=== PATIENT | female | born 1995 | race Caucasian/White ===

== ENCOUNTER 2021-03-12 03:39 | Emergency (ER) | payer OTHER ==
[2021-03-12 04:21] LABS: BASOPHIL 0.5 % (0-2); EOSINOPHIL 1.2 % (0-5); HCT 40.4 % (37.0-47.0); HGB 13.3 g/dl (12.5-16.0); LYMPHOCYTE 35.8 % (15-48); MCH 25.9 pg (25.0-31.0); MCHC 32.9 g/dL (32.0-36.0); MCV 78.6 fL (78.0-100.0); MONOCYTE 7.4 % (0-12); MPV 10.6 fL (6.0-9.5); NRBC 0; PLT 259 K/uL (150-400); RBC 5.14 M/uL (4.20-5.40); RDW 14.6 % (11.5-14.0); WBC 8.7 K/uL (4.0-10.5)
[2021-03-12 04:23] LABS: BILIRUBIN NEGATIVE (NEGATIVE); BLOOD NEGATIVE Ery/uL (NEGATIVE); CLARITY CLEAR (CLEAR); COLOR YELLOW (YELLOW); GLUCOSE (U) NORMAL (NORMAL); LEUKOCYTES NEGATIVE Leu/uL (NEGATIVE); NITRITE NEGATIVE (NEGATIVE); PROTEIN NEGATIVE (NEGATIVE); SPECIFIC GRAVITY >=1.030 (1.001-1.030)
[2021-03-12 04:35] LABS: ALBUMIN 4.1 g/dL (3.4-5.0); BILIRUBIN - TOTAL 0.2 mg/dL (0.2-1.0); BUN/CREAT RATIO (CALC) 11.5 RATIO; CREATININE 0.87 mg/dL (0.51-0.95); GLOBULIN (CALCULATION) 4.7 g/dL; POTASSIUM 3.5 mmol/L (3.5-5.1); TOTAL PROTEIN 8.8 g/dL (6.4-8.2)
== END 2021-03-12 05:15 | disposition home or self-care (01) ==
LOC: FER 03:39
PROVIDERS: Emergency Medicine
DX: G89.29 Other chronic pain (principal); R10.9 Unspecified abdominal pain; F17.200 Nicotine dependence, unspecified, uncomplicated
CPT/HCPCS: 36415; 80053; 81003; 85025; 99284; J7030

== ENCOUNTER 2021-12-27 02:34 | Emergency (ER) | payer OTHER ==
[2021-12-27 03:30] LABS: BASOPHIL 0.5 % (0-2); EOSINOPHIL 0.6 % (0-5); HCT 43.5 % (37.0-47.0); HGB 14.6 g/dl (12.5-16.0); MCHC 33.6 g/dL (32.0-36.0); MCV 83.3 fL (78.0-100.0); MONOCYTE 7.1 % (0-12); MPV 9.7 fL (6.0-9.5); NEUTROPHIL 63.7 % (41-80); NRBC 0; PLT 268 K/uL (150-400); RBC 5.22 M/uL (4.20-5.40); RDW 13.6 % (11.5-14.0); WBC 8.4 K/uL (4.0-10.5)
[2021-12-27 03:47] LABS: ALBUMIN 4.3 g/dL (3.4-5.0); BILIRUBIN - TOTAL 0.4 mg/dL (0.2-1.0); BUN/CREAT RATIO (CALC) 13.5 RATIO; CREATININE 0.74 mg/dL (0.51-0.95); GLOBULIN (CALCULATION) 4.7 g/dL; POTASSIUM 3.2 mmol/L (3.5-5.1)
== END 2021-12-27 04:10 | disposition home or self-care (01) ==
LOC: FER 02:34
PROVIDERS: Emergency Medicine
DX: R07.89 Other chest pain (principal)
CPT/HCPCS: 36415; 71045; 80053; 84484; 85025; 85379; 93005